=== PATIENT | male | born 1965 | race Caucasian/White ===

== ENCOUNTER 2025-05-23 18:07 | Emergency (ER) | payer BC ==
[2025-05-23] MEDS: Ketorolac 30 MG/ML SDV IM ONE (22:35)
== END 2025-05-23 22:47 | disposition home or self-care (01) ==
LOC: MW.ED 18:07
DX: M54.50 Low back pain, unspecified (principal); F17.200 Nicotine dependence, unspecified, uncomplicated; Z79.899 Other long term (current) drug therapy
CPT/HCPCS: 72100; 96372; 99283; A9270; J1885; J8540; 99284